=== PATIENT | female | born 1945 | race Caucasian/White ===

== ENCOUNTER 2022-09-01 16:36 | Emergency (ER) | payer MEDICARE, OTHER ==
[~2022-09-01] VITALS: Ht 162.6 cm; Wt 54.4 kg
[2022-09-01 17:28] VITALS: BP 155/87
[2022-09-01] MEDS ORDERED: LORA-259 PO (17:45)
[2022-09-01] MEDS ORDERED: LORAZEPAM 1 MG TABLET ONE (17:49)
[2022-09-01] MEDS ORDERED: LORAZEPAM 1 MG TABLET PO ONE (18:00)
--- NOTE | 2022-09-01 18:08 | NUR ---
MEDICATED ORDERED. SEE EMAR D/C IN STABLE CONDITION.
== END 2022-09-01 18:09 | disposition home or self-care (01) ==
LOC: ER 16:54
DX: F41.9 Anxiety disorder, unspecified (principal); Z60.2 Problems related to living alone; Z79.899 Other long term (current) drug therapy; Z88.5 Allergy status to narcotic agent; Z88.6 Allergy status to analgesic agent